=== PATIENT | male | born 1980 | race Caucasian/White ===

== ENCOUNTER 2021-11-05 09:10 | Emergency (ER) | payer SELFPAY ==
[~2021-11-05] VITALS: Ht 172.7 cm; Wt 77.4 kg
[2021-11-05 09:38] VITALS: BP 125/81
== END 2021-11-05 11:46 | disposition home or self-care (01) ==
LOC: ER 09:10
DX: F19.10 Other psychoactive substance abuse, uncomplicated (principal); F17.200 Nicotine dependence, unspecified, uncomplicated; F15.90 Other stimulant use, unspecified, uncomplicated; F11.90 Opioid use, unspecified, uncomplicated; Z87.442 Personal history of urinary calculi; Z56.0 Unemployment, unspecified; Z59.00 Homelessness unspecified
CPT/HCPCS: 99281

== ENCOUNTER 2022-12-13 19:15 | Emergency (ER) | payer MEDICAID ==
[~2022-12-13] VITALS: Ht 172.7 cm; Wt 40.4 kg
--- NOTE | 2022-12-13 19:28 | NUR ---
MAY GIVE INFORMATION TO IAN
[2022-12-13] MEDS ORDERED: LIDOCAINE 1%/EPI 1:100,000 inj. 10 ML multi-dose vial IJ ONE (19:45)
[2022-12-13] MEDS ORDERED: TETanus/Pertussis (Acell)/Diphther VAC/PF (Tdap-Adult) 0.5ml syringe IMVAC ONE (19:45)
[2022-12-13] MEDS ORDERED: sulfamethoxazole/trimethoprim DS (800/160mg) tablet PO ONE (20:15)
[2022-12-13] MEDS ORDERED: SULF1TAB45 PO (20:15)
[2022-12-13 20:37] VITALS: BP 148/87; PULSE 98; RESP 17; TEMP 98; O2SAT 97
--- NOTE | 2022-12-13 21:33 | NUR ---
REVIEWED LVNS ASSESSMENT, AGREE WITH ASSESSMENT.
== END 2022-12-13 20:39 | disposition home or self-care (01) ==
LOC: ER 19:16
DX: L02.212 Cutaneous abscess of back [any part, except buttock and flank] (principal); F15.90 Other stimulant use, unspecified, uncomplicated; Z79.899 Other long term (current) drug therapy
CPT/HCPCS: 10060; 90471; 90715; 99283; A6449